=== PATIENT | female | born 1990 | race Caucasian/White ===

== ENCOUNTER → 2023-10-07 15:10 | Outpatient (REF) | payer OTHER, SELFPAY | LOC: HWRAD 15:10 | PROVIDERS: ATTENDING PHYSICIAN Nurse Practitioner Family | DX: R59.0 Localized enlarged lymph nodes (principal); U07.1 COVID-19 | CPT/HCPCS: 71046 ==

== ENCOUNTER 2023-10-12 15:31 | Emergency (ER) | payer OTHER, SELFPAY ==
[2023-10-12 15:38] VITALS: BP 130/100
[2023-10-12 16:07] LABS: % Basophils 0.1 % (0-2); % Eosinophils 0.2 % (0-6); % Immature Granulocytes 0.6 % (0-0.5); % Lymphocytes 15.4 % (20.5-51.1); % Monocytes 4.7 % (1.7-9.3); Absolute Immature Granulocytes 0.1 10^3/uL (0-0.05); Absolute Lymphocytes 1.3 10^3/uL (1.2-3.4); Absolute Monocytes 0.4 10^3/uL (0.1-0.6); Absolute Neutrophils 6.8 10^3/uL (1.4-6.5); Hematocrit 38.5 % (37.0-47.0); Mean Corp Hgb Conc. 33.8 g/dL (33.0-37.0); Mean Corpuscular Hgb 25.8 pg (27.0-31.0); Mean Corpuscular Volume 76.4 fL (81.0-99.0); Mean Platelet Volume 9.7 fL (7.4-10.4); Nucleated Red Blood Cells % 0 %; Platelet Count 173 10^3/uL (130-400); Red Blood Cell Count 5.04 10^6/uL (4.20-5.40); Red Cell Dist. Width 13.3 % (11.5-14.5); White Blood Cell Count 8.7 10^3/uL (4.8-10.8)
[2023-10-12 16:13] LABS: HCG, Serum Qualitative Screen Negative
[2023-10-12 16:29] VITALS: BMI 29.3
--- NOTE | 2023-10-12 17:15 | EDRN ---
awaiting for provider to see the pt, the pt is resting in stretcher in the lowest position, side rails up x1, HOB elevated, no s/s of distress, no c/o N/V, will continue to monitor the pt closely
[2023-10-12 17:18] LABS: ALT (SGPT) 61 U/L (0-35); AST (SGOT) 56 U/L (14-36); Albumin 4.4 g/dl (3.5-5.0); Alkaline Phosphatase 68 U/L (38-126); Blood Urea Nitrogen 12 mg/dl (7-17); Calcium 8.9 mg/dl (8.4-10.2); Carbon Dioxide 23 mmol/L (22-30); Chloride 108 mmol/L (98-107); Estimated Creatinine Clearance 124 ml/min; Glucose 99 mg/dl (70-99); Potassium 4.3 mmol/L (3.5-5.1); Sodium 138 mmol/L (135-145); Total Bilirubin 0.6 mg/dl (0.2-1.3); Total Protein 7.4 g/dl (6.3-8.2); eGFR > 60.00
--- NOTE | 2023-10-12 18:01 | EDRN ---
still awaiting for provider to see the pt, no s/s of distress, no c/o N/V, will continue to monitor the pt closely
--- NOTE | 2023-10-12 18:05 | EDRN ---
Dr. Haney currently at the pts bedside
[2023-10-12] MEDS: REGLAN 10 MG IV (18:17)
[2023-10-12] MEDS: BENADRYL 25 MG IV (18:18)
[2023-10-12] MEDS: TORADOL 15 MG IV (18:18)
[2023-10-12] MEDS: NSS 500 IV (18:19)
[2023-10-12 18:53] LABS: D-Dimer 0.34 ug/mlFEU (0.00-0.50)
--- NOTE | 2023-11-07 10:12 | ED.GENMED ---
History of Present Illness
General
Chief Complaint: Headache
Source: patient
Exam Limitations: none
Time Seen by Provider: 10/12/23 18:00
Travel History
Have you had any contact with someone who has COVID-19?: No
Do you have any symptoms of coronavirus? Fever > 100 degrees, chills, cough, shortness of breath, sore throat, loss of taste or smell, muscle aches, or headache?: No
History of Present Illness
History of Present Illness:
This history is from recall. Patient with a headache which started earlier in the day. Some nausea and vomiting mild photophobia. Recent COVID infection. No neurologic symptoms or other complaints
Past History
Past History
ED Past Medical History: Other (Melanoma)
Social History
Tobacco: Non-smoker
Alcohol: Occasional
Drug: None
Personal: Single
Living: with family
Employment: Employed
Review of Systems
Review of Systems
All Other Systems: Not applicable
Constitutional: Denies fever
Neurological: Denies dizzy, weakness or numbness
Phy Exam
Physical Exam
Physical Exam:
GENERAL: Alert and oriented in no apparent distress
EYE: Orbits normal. Discs sharp
NECK: Supple
ENT: Pharynx without erythema
CARDIAC: Regular rate and rhythm without any obvious murmurs.
LUNGS: Clear breath sounds,normal
ABDOMEN: Soft, without focal tenderness or distention
NEUROLOGICAL: Alert and oriented , grossly non-focal. Speech normal.
SKIN: Warm and dry, no rash or lesion, no discoloration, skin intact.
MUSCULOSKELETAL: No edema,no deformity.Good color
PSYCH: Normal and appropriate interaction.
Course
Orders/Labs/Results
Orders:
Orders
10/12/23 15:41
Test Result ONCE
10/12/23 15:51
Complete Blood Count/With Diff Urgent
Comprehensive Metabolic Panel Urgent
HCG, Serum Qualitative Screen Urgent
10/12/23 18:06
CT Head W/o Iv Contrast Urgent
Comment:
Reason For Exam: sudden monae
IV Insert/Care/Rem.- Treatment PRN
0.9% Sodium Chloride 500 ml [Nss] 500 ml IV BOLUS
Diphenhydramine [Benadryl] 25 mg IV NOW STA
Ketorolac [Toradol] 15 mg IV NOW STA
Metoclopramide [Reglan] 10 mg IV NOW STA
10/12/23 18:24
D-Dimer Urgent
Abnormal Lab Results
10/12/23
15:51
MCV 76.4 L fL
(81.0-99.0)
MCH 25.8 L pg
(27.0-31.0)
Abs Immat Gran (auto) 0.1 H 10^3/uL
(0-0.05)
Absolute Neuts (auto) 6.8 H 10^3/uL
(1.4-6.5)
Immature Gran % 0.6 H %
(0-0.5)
Neutrophils % 79.0 H %
(42.2-75.2)
Lymphocytes % 15.4 L %
(20.5-51.1)
Chloride 108 H mmol/L
(98-107)
AST 56 H U/L
(14-36)
ALT 61 H U/L
(0-35)
10/12/23 15:51
10/12/23 15:51
Vital Signs
Initial and Last Documented VS:
Initial Vital Signs
Temp Pulse Resp BP Pulse Ox
98.8 F 72 16 130/100 98
10/12/23 15:38 10/12/23 15:38 10/12/23 15:38 10/12/23 15:38 10/12/23 15:38
Last Documented Vital Signs
Temp Pulse Resp BP Pulse Ox
98.8 F 72 16 130/100 98
10/12/23 15:38 10/12/23 15:38 10/12/23 15:38 10/12/23 15:38 10/12/23 15:38
*Radiology
Radiology exam reviewed: radiology read reviewed (Negative)
*Pulse Oximetry
Patient hypoxic: no
*Critical Care Note
Total Time (30-74mins, 75-104mins- exclusive of procedures): Not Applicable
Update Note
Update Note:
Patient remained medically stable and nontoxic throughout her ER stay. Workup unremarkable. Discharged to follow-up
ED Attending Note
-
Portions of this chart may have been created with voice recognition software.� Occasional wrong word or��sound alike� substitutions may have occurred due to the inherent limitations of voice recognition software.
Discharge Plan
Departure
Patient Disposition: Home (Routine Discharge)
Date of Disposition: 10/12/23
Time of Disposition: 21:11
Patient with high blood pressure during this ER visit?: Yes
Discharge Problem:
ACUTE HEADACHE, Recent COVID infection
Instructions: Headache, Adult (DC), BLOOD PRESSURE
Prescriptions:
No Action
No Current Medications
0
Referrals:
Faraz Figueredo CRNP [Family Provider] - Follow up in 2-3 days
Activity Restrictions/Additional Instructions:
Get rechecked with any progression of headache, fever, worsening visual issues or acute neurologic issues.
Also get rechecked if headache is not resolved in 1 to 2 days
Interventions
Interventions:
*Risk Screen - Suicide Last Done: 10/12/23 16:29
*General Assessment Last Done: 10/12/23 16:29
*Neglect/Abuse Screening Last Done: 10/12/23 16:29
ED- Fall Risk Assessment Last Done: 10/12/23 16:29
*ED COVID-19 Vaccine History Last Done: 10/12/23 15:38
*Nursing Disposition Last Done: 10/12/23 21:27
ED- Neurological Assessment Last Done: 10/12/23 16:29
Discharge Date and Time
Discharge Date/Time: 10/12/23 21:28
Print Language: TURKISH
== END 2023-10-12 21:28 | disposition home or self-care (01) ==
LOC: EMR 15:31
PROVIDERS: EMERGENCY PHYSICIAN Emergency Medicine; FAMILY PHYSICIAN Nurse Practitioner Family
DX: R51.9 Headache, unspecified (principal); R11.2 Nausea with vomiting, unspecified; R03.0 Elevated blood-pressure reading, without diagnosis of hypertension; Z86.16 Personal history of COVID-19
CPT/HCPCS: 99284; 96374; 96375 ×2; 96361; 70450; 80053; 84703; 85025; 85379

== ENCOUNTER → 2024-01-08 08:04 | Outpatient (REF) | payer OTHER, SELFPAY | LOC: RCS 08:04 | PROVIDERS: ATTENDING PHYSICIAN Internal Medicine Cardiovascular Disease; FAMILY PHYSICIAN Nurse Practitioner Family | DX: R00.2 Palpitations (principal); R07.89 Other chest pain; R06.09 Other forms of dyspnea; R94.39 Abnormal result of other cardiovascular function study | CPT/HCPCS: 93017; 93350 ==

== ENCOUNTER → 2024-03-10 12:00 | Outpatient (REF) | payer OTHER, SELFPAY | LOC: DHSLP 12:00 | PROVIDERS: ATTENDING PHYSICIAN Internal Medicine; FAMILY PHYSICIAN Nurse Practitioner Family | DX: G47.8 Other sleep disorders (principal); R06.83 Snoring | CPT/HCPCS: 95800 ==

== ENCOUNTER 2024-04-03 17:09 | Emergency (ER) | payer OTHER, SELFPAY ==
[2024-04-03 17:11] VITALS: BP 153/105
[2024-04-03 17:32] LABS: Urine Albumin Negative (Neg - Trace); Urine Bilirubin Negative (Negative); Urine Character Clear (Clear); Urine Color Yellow; Urine Glucose Negative (Negative); Urine Ketone Negative (Negative); Urine Leukocyte Negative (Negative); Urine Nitrite Negative (Negative); Urine Occult Blood Negative (Negative); Urine Urobilinogen Negative (Neg - 1+)
--- NOTE | 2024-04-03 17:47 | ED.GENMED ---
History of Present Illness
General
Chief Complaint: Flank Pain
Source: patient
Exam Limitations: none
Time Seen by Provider: 04/03/24 17:38
Nursing documentation reviewed up to this point in time: agreed with
History of Present Illness
History of Present Illness:
34-year-old female with history of pelvic floor dysfunction with intermittent mild incontinence states she has had left flank and left lower abdominal pain for the past 4 days waxing and waning. Sometimes ibuprofen helps. She also states 'my
bladder hurts.' She has had dysuria and frequency. She states now the pain is 2/10. She went to urgent care 3 days ago and she states her UA was normal. She has had no fever or chills, no vomiting, she does feel nauseous off and on and her
appetite has been diminished over the past few days.
Past History
Past History
ED Past Medical History: Other (Melanoma)
Social History
Tobacco: Non-smoker
Alcohol: Occasional
Drug: None
Personal: Single
Living: with family
Employment: Employed
Review of Systems
Review of Systems
Allergies reviewed?: Yes
All Other Systems: ROS reviewed and negative except as documented in HPI and ROS
Constitutional: Denies fever or chills
Respiratory: Denies trouble breathing
Cardiac: Denies chest pain
ABD/GI: Reports abdominal pain, nausea and anorexia; Denies vomiting, diarrhea, constipated, bloody stools or black stools
: Reports dysuria, frequency, flank pain (Left) and difficulty voiding; Denies bleeding or discharge
Musculoskeletal: Reports no symptoms
Skin: Reports no symptoms
Neurological: Reports no symptoms
Phy Exam
Physical Exam
Physical Exam:
GENERAL: No acute distress. A&Ox3.
CONSTITUTIONAL: Afebrile.
EYES: clear, conjunctivae normal
ENMT: moist mucus membranes, Pharynx nl
RESPIRATORY: Regular respirations, nonlabored, lungs clear.
CARDIOVASCULAR: Regular rate and rhythm, no murmurs, no rubs.
GI: Soft, tender entire left abdomen. normal BS, mild left flank tenderness to percussion.
MUSCULOSKELETAL: Moves with ease. Well perfused.
SKIN: Warm, dry, pink
PSYCH: Normal mood and affect. Well kept, interactive and appropriate
NEUROLOGIC: Awake, alert and oriented. No focal neurological deficits
Course
Orders/Labs/Results
Orders:
Orders
04/03/24 17:16
Urinalysis Reflex To Culture Urgent
Date Specimen was Collected: 04/03/24
Time Specimen was Collected: 17:12
04/03/24 17:47
CT Abd/pel Without Iv Or Oral Urgent
Comment:
Reason For Exam: Left-sided abdominal pain, flank pain
Test Result ONCE
04/03/24 18:05
Complete Blood Count/With Diff Urgent
Comprehensive Metabolic Panel Urgent
HCG, Serum Qualitative Screen Urgent
Lipase Urgent
Abnormal Lab Results
04/03/24
18:05
WBC 11.1 H 10^3/uL
(4.8-10.8)
MCV 78.9 L fL
(81.0-99.0)
Absolute Neuts (auto) 7.0 H 10^3/uL
(1.4-6.5)
Absolute Monos (auto) 0.8 H 10^3/uL
(0.1-0.6)
04/03/24 18:05
04/03/24 18:05
Vital Signs
Initial and Last Documented VS:
Initial Vital Signs
Temp Pulse Resp BP Pulse Ox
99 F 78 16 153/105 100
04/03/24 17:11 04/03/24 17:11 04/03/24 17:11 04/03/24 17:11 04/03/24 17:11
Last Documented Vital Signs
Temp Pulse Resp BP Pulse Ox
99 F 78 18 137/88 98
04/03/24 17:11 04/03/24 17:11 04/03/24 19:58 04/03/24 19:58 04/03/24 19:58
MDM/Problems Addressed
Differential Diagnosis Includes:
UTI, pyelonephritis, kidney stone, diverticulitis, cystitis, musculoskeletal pain
MDM/Problems Addressed:
34-year-old female with history of pelvic floor dysfunction with intermittent mild incontinence states she has had left flank and left lower abdominal pain for the past 4 days waxing and waning. Sometimes ibuprofen helps. She also states 'my
bladder hurts.' She has had dysuria and frequency. She states now the pain is 2/10. She went to urgent care 3 days ago and she states her UA was normal. She has had no fever or chills, no vomiting, she does feel nauseous off and on and her
appetite has been diminished over the past few days.
CBC no clinically significant abnormality
CMP normal
Lipase normal
U/A neg
HCG neg
BP 130/78
CT abd/pelvis without IV or oral contrast: radiology report read: IMPRESSION:
Mild scarring of the right kidney. Not mentioned above, the right kidney also appears slightly smaller than the left.
Possible 1 mm nephrolith in the central mid to lower right kidney. No evidence for ureteral calculus bilaterally.
The appendix appears normal. No evidence for bowel obstruction or free intraperitoneal air.
Mild bony degenerative changes as described.
Stable for discharge
Copies of all studies sent with pt
*Critical Care Note
Total Time (30-74mins, 75-104mins- exclusive of procedures): Not Applicable
ED Attending Note
-
Portions of this chart may have been created with voice recognition software.� Occasional wrong word or��sound alike� substitutions may have occurred due to the inherent limitations of voice recognition software.
Discharge Plan
Departure
Patient Disposition: Home (Routine Discharge)
Date of Disposition: 04/03/24
Time of Disposition: 19:49
Patient with high blood pressure during this ER visit?: No
Condition: Good
Discharge Problem:
Abdominal pain, Acute left flank pain
Instructions: Low back pain in adults, Abdominal Pain, Adult ED
Prescriptions:
No Action
No Current Medications
0
Referrals:
Faraz Figueredo CRNP [Family Provider] - As needed
Activity Restrictions/Additional Instructions:
As we discussed, there is nothing in your workup here today that is worrisome.
There is no indication of urinary tract infection, kidney stone, dehydration or anything else concerning
Try ibuprofen 600 mg, with food, every 6 hours for the next 3 days and see if it helps
See your doctor in 7 to 10 days if not improved by then.
Interventions
Interventions:
*Risk Screen - Suicide Last Done: 04/03/24 18:08
*General Assessment Last Done: 04/03/24 18:08
*Neglect/Abuse Screening Last Done: 04/03/24 18:08
*Nursing Disposition Last Done: 04/03/24 20:03
ED-Female Genitourinary Assessment Last Done: 04/03/24 18:07
Discharge Date and Time
Discharge Date/Time: 04/03/24 20:04
Print Language: [place]ESE
[2024-04-03 18:14] LABS: % Basophils 0.4 % (0-2); % Eosinophils 1.4 % (0-6); % Immature Granulocytes 0.4 % (0-0.5); % Lymphocytes 27.3 % (20.5-51.1); % Monocytes 7.4 % (1.7-9.3); % Neutrophils 63.1 % (42.2-75.2); Absolute Eosinophils 0.2 10^3/uL (0-0.7); Absolute Monocytes 0.8 10^3/uL (0.1-0.6); Hematocrit 37.1 % (37.0-47.0); Hemoglobin 12.7 g/dL (12.0-16.0); Mean Corp Hgb Conc. 34.2 g/dL (33.0-37.0); Mean Corpuscular Volume 78.9 fL (81.0-99.0); Mean Platelet Volume 9.3 fL (7.4-10.4); Nucleated Red Blood Cells % 0 %; Platelet Count 262 10^3/uL (130-400); Red Cell Dist. Width 13.2 % (11.5-14.5); White Blood Cell Count 11.1 10^3/uL (4.8-10.8)
[2024-04-03 18:28] LABS: HCG, Serum Qualitative Screen Negative
[2024-04-03 18:31] LABS: ALT (SGPT) 34 U/L (0-35); AST (SGOT) 33 U/L (14-36); Albumin 4.3 g/dl (3.5-5.0); Alkaline Phosphatase 71 U/L (38-126); Blood Urea Nitrogen 14 mg/dl (7-17); Carbon Dioxide 24 mmol/L (22-30); Chloride 104 mmol/L (98-107); Glucose 89 mg/dl (70-99); Potassium 4.1 mmol/L (3.5-5.1); Sodium 141 mmol/L (135-145); Total Bilirubin 0.7 mg/dl (0.2-1.3); Total Protein 7.2 g/dl (6.3-8.2); eGFR > 60.00
[2024-04-03 18:32] LABS: Lipase 131 U/L (23-300)
[2024-04-03 19:58] VITALS: BP 137/88
== END 2024-04-03 20:04 | disposition home or self-care (01) ==
LOC: EMR 17:09
PROVIDERS: Registered Nurse; EMERGENCY PHYSICIAN Emergency Medicine; FAMILY PHYSICIAN Nurse Practitioner Family
DX: R10.32 Left lower quadrant pain (principal); R11.0 Nausea; R10.2 Pelvic and perineal pain; R63.0 Anorexia; R30.0 Dysuria; R35.0 Frequency of micturition; F41.9 Anxiety disorder, unspecified; F32.A Depression, unspecified; Z85.820 Personal history of malignant melanoma of skin
CPT/HCPCS: 99284; 74176; 80053; 81003; 83690; 84703; 85025

== ENCOUNTER → 2024-07-24 10:13 | Outpatient (REF) | payer OTHER, SELFPAY | LOC: HWRAD 10:13 | PROVIDERS: ATTENDING PHYSICIAN Nurse Practitioner Family | DX: M54.6 Pain in thoracic spine (principal) | CPT/HCPCS: 72072 ==

== ENCOUNTER → 2024-09-24 10:34 | Outpatient (REF) | payer OTHER, SELFPAY | LOC: HWRAD 10:34 | PROVIDERS: ATTENDING PHYSICIAN Nurse Practitioner Family | DX: R07.89 Other chest pain (principal); M54.2 Cervicalgia; M25.512 Pain in left shoulder | CPT/HCPCS: 71046; 72050; 73030 ==